=== PATIENT | female | born 2000 | race Caucasian/White ===

== ENCOUNTER 2019-05-10 11:58 | Emergency (ER) | payer SELFPAY ==
[2019-05-10 12:00] VITALS: BP 126/81; PULSE 93; RESP 16; TEMP 36.6; O2SAT 99; BMI 20.5
--- NOTE | 2019-05-10 12:47 | ED.VIS.GEN ---
History of Present Illness Chief Complaint: Edema Informant: Patient Onset: Days Context: Gradual Onset Timing: Continuous Current Severity: Severe Maximum Severity: Severe Narrative: Patient is a 19-year-old female with no significant past medical history presenting with pain and swelling around her right eye. Patient states a couple days ago she had what she thought was a pimple and popped it. She had a small amount of pus that came out. Since then she has had worsening pain, redness and swelling. She has had no more drainage from the site. Patient states is hard for her to open her eye now because of the swelling. When her eye is open she denies any blurry vision. She denies any pain with range of motion of her eyeball. She denies any fever, chills, nausea, vomiting or other systemic symptoms. She denies any history of IV drug use or MRSA. She denies any other complaints at this time. Patient states she is allergic to amoxicillin and penicillin but her reaction is vomiting. Past Medical History - Allergies and Home Meds Allergies/Adverse Reactions: Allergies amoxicillin Allergy (Verified 05/10/19 12:00) Hives Penicillins [PCN] Allergy (Verified 05/10/19 12:00) Hives Primary Care Physician: Care Physician,No Primary [Primary Care Provider] - Smoking Status: Current every day smoker Review of Systems All systems negative except as indicated Eyes: Reports: - - Swelling of eyelids, left Skin: Reports: Rash - Redness and warmth around left eye, Abscess - Left lateral eyebrow Physical Exam Vital Signs/Narrative: Vital Signs Temp Pulse Resp BP Pulse Ox 05/10/19 12:00 97.8 F 93 16 126/81 H 99 Inital Vital Signs reviewed: Yes General: Well nourished, Well developed, No Acute Distress Head: Normocephalic, Atraumatic Eyes: Perrl, EOMI, - - Sclera ecchymosis of lateral left eye, significant edema of upper and lower lids on the left with associated erythema ENT: Moist mucous membranes, No rhinorrhea Neck: Supple, Nontender Cardiovascular: Regular rate, Regular rhythm, No murmurs Respiratory: No distress, CTA bilaterally, Chest nontender Abdomen: Soft, Nontender, Nondistended, Normal bowel sounds Back: Nontender, Normal Inspection Extremities: Nontender, No edema Skin: No rash, - - Warmth, erythema and tenderness extending from lateral left eyebrow inferiorly, 1 cm x 1 cm area of fluctuance palpated just underneath the left lateral eyebrow Neurological: Alert, Oriented x3, Cranial nerves II-XII grossly intact, Normal Strength, Normal Sensation Psychological: Normal affect, Normal Mood Diagnostic/Tx/Re-eval - Medical Decision Making Patient has swelling and redness around her left eye. Physical exam is consistent with preseptal cellulitis. Range of motion is painless and intact I do not suspect a post septal cellulitis. Bedside ultrasound performed by myself which does show a discrete area of hypoechoic fluid consistent with an abscess just below the left lateral eyebrow. I&D is performed. See procedure note. Patient is started on Bactrim and Keflex. She is given first dose in the emergency room. Patient is given Motrin and then Percocet for pain control. She is given Zofran as she is had a reaction of nausea with penicillins in the past. Patient is counseled on signs and symptoms of progression of cellulitis/post septal cellulitis. She is referred to PCP for follow-up as well as ophthalmology. Patient is counseled on signs and symptoms requiring return to the emergency room. Patient verbalizes agreement and understand this plan. Patient discharged home in stable and improved condition. Procedures Procedure(s): Incision and drainage. Area anesthetized with 1 cc of 1% lidocaine without epinephrine. After adequate analgesia is achieved a #15 blade is used to make a 1 cm linear incision. Good amount of purulent drainage is expressed. Patient did have significant pain with this but tolerated procedure well. Forceps used to open up any potential loculations. Bleeding controlled with direct pressure. No significant blood loss. Extraocular eye muscles intact after procedure. No immediate complications noted. ED Disposition - Plan for ED Patient: Disposition: Home or Assisted Living Diagnosis: Abscess of face, Preseptal cellulitis of left eye Instructions: Nieves-Orbital Cellulitis, ABSCESS, Incision and Drainage Prescriptions: Smz/Tmp Ds [Bactrim Ds] 1 tab PO BID #14 tab Prescription Printed Cephalexin [Keflex] 500 mg PO Q6 #28 cap Prescription Printed Hydrocodone Bitart/Apap 5-325 [[place] 5MG-325MG] 1 tab PO Q8 PRN 3 Days #9 tab PRN Reason: Pain Score 6-10/10 Prescription Printed Ondansetron [Zofran Odt] 4 mg PO Q8H PRN PRN #10 tab PRN Reason: Nausea Prescription Printed Referrals: Care Physician,No Primary [Primary Care Provider] - Melanie Gil DO [NON-STAFF] - Lee Miller MD [STAFF PHYSICIAN] - Additional Instructions: Apply warm compresses to the affected area 4-6 times a day. Return if you have worsening symptoms or you do not notice any significant improvement after 48 hours of antibiotics.
[2019-05-10] MEDS: Ibuprofen 600 MG Tablet PO (12:53)
[2019-05-10] MEDS: Smz/Tmp Ds Tablet 1 TABLET PO (12:53)
[2019-05-10] MEDS: Ondansetron ODT 4 MG Tablet PO (12:53)
[2019-05-10] MEDS: Cephalexin 500 MG Capsule PO (12:55)
[2019-05-10] MEDS: HYDROcodone Bitartrate/Apap 5/325 Tablet PO (14:25)
== END 2019-05-10 14:32 | disposition home or self-care (01) ==
PROVIDERS: Emergency Provider Emergency Medicine
DX: L02.01 Cutaneous abscess of face (principal); L03.213 Periorbital cellulitis; F17.200 Nicotine dependence, unspecified, uncomplicated
CPT/HCPCS: 10060; 99283

== ENCOUNTER → 2020-07-15 15:12 | Outpatient (CLI) | payer MEDICAID, SELFPAY ==
[2020-07-15 17:17] LABS: Absolute Lymphocyte Count 0.81 X10^3/uL (0.83-4.51); Absolute Neutrophil Count 7.9 X10^3/uL (2.0-7.7); Basophil# 0.03 X10^3/uL; Basophil% 0.3 % (0-1); Eosinophil# 0.02 X10^3/uL; Eosinophils% 0.2 % (0-5); Hemoglobin 13.3 g/dL (12.0-15.0); Lymphocyte # 0.81 X10^3/ul (4.0); Lymphocyte % 9.1 % (19-41); Mean Corp Hgb Conc 31.7 g/dL (32-36); Mean Corpuscular Hgb 28.5 pg (27.0-32.0); Mean Corpuscular Volume 89.9 fL (81-99); Mean Platelet Vol. 9.1 fl (6.2-12.0); Monocyte# 0.12 X10^3/uL; Monocyte% 1.3 % (0-10); NRBC Flagged by Analyzer 0 % (0-5); Neutrophil # 7.92 X10^3/uL (2.7-7.7); Neutrophil % 88.8 % (47-70); Platelet Count 280 K/mm3 (150-450); RBC Distribution Width SD 42.3 fl (35.1-43.9); Red Blood Count 4.67 M/mm3 (4.2-5.4); White Blood Count 8.9 K/mm3 (4.4-11.0)
[2020-07-15 17:24] LABS: ALB/GLOB Ratio 0.9 RATIO (0.9-2.4); AST(SGOT) 7 U/L (15-37); Alanine Aminotransfer ALT/SGPT 21 U/L (13-56); Albumin, Serum 3.8 g/dL (3.2-5.0); Alkaline Phosphatase 76 U/L (45-117); Anion Gap 5 (5-15); BUN 9 mg/dL (7-18); BUN/Creat Ratio 15.6 RATIO (10-20); Calcium,Total 9.2 mg/dL (8.5-10.1); Chloride 108 mmol/L (98-107); Creatinine, Serum 0.58 mg/dL (0.55-1.02); EST Glomerular Filtration Rate 140 mL/min (>60); Est Glom Filt Rate - Afr Amer 169 mL/min (>60); Globulin 4.3 g/dL (2.2-4.2); Glucose 91 mg/dL (74-106); Potassium 3.6 mmol/L (3.5-5.1); Protein, Total 8.1 g/dL (6.4-8.2); Sodium Level 138 mmol/L (136-145)
[2020-07-16 08:58] LABS: HIV - WCH Non-Reactive (Nonreactive); Hepatitis B Surface Antigen Non-Reactive (Nonreactive); Rubella IgG Reactive (Nonreactive)
[2020-07-16 09:01] LABS: Hepatitis C Antibody REACTIVE (Nonreactive)
[2020-07-17 20:07] LABS: HCV Quant. RNA PCR HCV Not Detected IU/mL (.)
[2020-07-19 20:07] LABS: Chlamydia By Nucleic Acid AMP Negative (Negative)
[2020-07-19 20:49] LABS: Gonococcus By Nucleic Acid AMP Negative (Negative)
[2020-07-20 15:22] LABS: HPV Reflexed? NOT INDICATED
[2020-07-22 01:26] LABS: Prenatal RPR NONREACTIVE (NONREACTIVE)
== END ==
PROVIDERS: Visit Provider Obstetrics & Gynecology
DX: Z12.4 Encounter for screening for malignant neoplasm of cervix (principal); Z11.3 Encounter for screening for infections with a predominantly sexual mode of transmission
CPT/HCPCS: 36415; 80053; 80307; 81002; 85025; 86703; 86762; 86803; 87086; 87340; 87491; 87522; 87591; 88175; G0145

== ENCOUNTER → 2020-11-11 | Outpatient (CLI) | payer MEDICAID, SELFPAY ==
[2020-11-11 14:01] LABS: Amphetamine Urine VISTA POSITIVE (<1000 ng/mL); Barbiturate Urine VISTA NEGATIVE (< 200 ng/mL); Benzodiazepine Urine VISTA NEGATIVE (< 200 ng/mL); Cocaine Urine VISTA NEGATIVE (< 300 ng/mL); Ecstacy Urine VISTA POSITIVE (< 500 ng/mL); Methadone Urine VISTA NEGATIVE (< 300 ng/mL); PCP Urine VISTA NEGATIVE (< 25 ng/mL); THC Urine VISTA POSITIVE (< 50 ng/mL); Vista UDS pH Range 6
== END | disposition home or self-care (01) ==
LOC: LABSPEC 13:31
PROVIDERS: Visit Provider Obstetrics & Gynecology
DX: O99.322 Drug use complicating pregnancy, second trimester (principal); F19.10 Other psychoactive substance abuse, uncomplicated; Z3A.00 Weeks of gestation of pregnancy not specified
CPT/HCPCS: 80307

== ENCOUNTER 2021-03-09 23:08 | Inpatient (IN) | payer MEDICAID, SELFPAY ==
[2021-03-09 23:16] VITALS: BP 135/83; PULSE 82
[2021-03-09 23:19] VITALS: BMI 22.2
[2021-03-09 23:20] VITALS: PULSE 86; O2SAT 95
[2021-03-09] MEDS: Lactated Ringers 500 ML 999 ML IV (23:20)
[2021-03-09 23:22] VITALS: PULSE 93; O2SAT 93
--- NOTE | 2021-03-09 23:40 | PLAC_PTH ---
PATIENT: IRAM MEDINA LOC: [facility] U#:[id number] AGE/SX: ROOM: WP014 RE03/09/[address]: Dr. Matt Pendleton MD : 2000 BED: 1 DIS: 03/11/2021 SPEC #: [id number] RECD: 03/10/21 14:08 STATUS: ORALIA REMary #: [id number] AYLA: 03/09/21 23:[address]: Matt Pendleton DEPT: SURGICAL PATHOLOGY RECD BY: Kamran Fisher ENTERED: 03/10/21 10:04 SP TYPE: PLACENTA OTHR DR: No Primary Care Phys Tissues: Placenta, NOS Procedures: Surgery Specimen Level V HEADER OPERATION: Vaginal delivery PRE-OP DIAGNOSIS: Bloody amniotic fluid likely aruptio; drug use TISSUE SUBMITTED: Placenta MICROSCOPIC DIAGNOSIS Medel placenta (462 gm): Umbilical cord ? Trivascular with no inflammation Placental membranes ? No pathologic change. Placental disc ? Tenny-Brian change, intra villous and intervillous congestion. AM: am 03/15/21 MICROSCOPIC DESCRIPTION Slides are reviewed. GROSS DESCRIPTION SPECIMEN: PLACENTA / CLINICAL INFORMATION: A. Weight: 2.825 kg B. Gestational Age: 40 weeks C. Sex: Female PLACENTAL WEIGHT (POST FIXATION): 462 gm PLACENTAL DIMENSIONS: 16 x 14 x 3 cm PLACENTAL SHAPE: Usual ovoid PLACENTAL WEIGHT FOR GESTATIONAL AGE: Within 10-99th percentile MEMBRANES - Present A. Insertion: Marginal B. Site of rupture from edge: At cm from edge of placental disc C. Color of membrane: Baird-das D. Abnormalities: None UMBILICAL CORD - Present A. Color: Baird-das B. Insertion: Eccentric C. Length: 38 cm D. Diameter: 1.2 cm E. Number of vessels: Three F. Abnormalities: None PLACENTAL DISC - Present A. Color of surface: Baird-das B. surface abnormalities: None C. Maternal cotyledons: Intact with minimal tears D. Attached retro placental clot: No clot E. Cut surface: Dark red and spongy F. Lesions: None G. Separate clot: Absent SECTIONS SUBMITTED: 1. Umbilical cord ( end notched) 2. Umbilical cord, placental end 3. Membrane roll 4. Placental disc, and maternal surfaces 5. Placental disc, and maternal surfaces 6. Placental disc, and maternal surfaces AM:adarsh 03/11/2021 TC: CPT: 31416
[2021-03-09 23:45] LABS: Absolute Lymphocyte Count 2.01 X10^3/uL (0.83-4.51); Absolute Neutrophil Count 11.1 X10^3/uL (2.0-7.7); Basophil# 0.03 X10^3/uL; Basophil% 0.2 % (0-1); Eosinophil# 0.03 X10^3/uL; Eosinophils% 0.2 % (0-5); Hematocrit 38.7 % (37-47); Hemoglobin 12.5 g/dL (12.0-15.0); Lymphocyte # 2.01 X10^3/ul (0.83-4.51); Lymphocyte % 13.9 % (19-41); Mean Corp Hgb Conc 32.3 g/dL (32-36); Mean Corpuscular Hgb 27.9 pg (27.0-32.0); Mean Corpuscular Volume 86.4 fL (81-99); Mean Platelet Vol. 9.5 fl (6.2-12.0); Monocyte# 1.12 X10^3/uL; Monocyte% 7.8 % (0-10); NRBC Flagged by Analyzer 0 % (0-5); Neutrophil # 11.14 X10^3/uL (2.7-7.7); Neutrophil % 77.3 % (47-70); Platelet Count 365 K/mm3 (150-450); RBC Distribution Width CV 13.8 % (11.6-14.6); RBC Distribution Width SD 43.4 fl (35.1-43.9); Red Blood Count 4.48 M/mm3 (4.2-5.4); White Blood Count 14.4 K/mm3 (4.4-11.0)
[2021-03-09] MEDS: Oxytocin 30 units/NS 500 ml 30 UNITS/500 ML IV.SOLN 334 UNITS IV (23:47)
[2021-03-10] VITALS (20 sets, daily range): BP systolic 120–162; BP diastolic 64–87; PULSE 72–99; RESP 16–18; TEMP 36.4–36.7; O2SAT 96
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
--- NOTE | 2021-03-10 00:27 | EX.PCM.OBRPT ---
Vaginal Delivery Maternal Presentation Maternal Presentation: Active Labor Maternal Presentation: Presents at 40 weeks and 4 days gestation with heavy vaginal bleeding in advanced labor. Operative Information Date of Procedure: 03/09/21 Pre-Operative Diagnosis: IUP Post-Operative Diagnosis: IUP, Abruption Type of Anesthesia: Local with 1% Lidocaine Estimated Blood Loss: 750 cc Fluids Replaced: Crystalloid Findings Description of Procedure: Spontaneous precipitous vaginal delivery of a viable female infant with Apgars of 8/9 from an occiput anterior presentation with bloody amniotic fluid and three-vessel placenta. Placenta appeared to have approximately a 25% abruption. Second-degree midline episiotomy with no lacerations repaired with 3-0 Vicryl suture under local. Adherent placenta removed with ring forceps and a single pass of the banjo curette. Sponges okay. Nursery and respiratory personnel present for delivery. Delivery physician: Matt Pendleton MD. Presentation: Vertex Amniotic Membrane Rupture Type: Spontaneous Amniotic Fluid Description: Bloody Placental Delivery Description: Spontaneous and Curettage Placenta Disposition: Sent to Pathology Cord Vessel Description: 3 Vessels Cord Entanglement: None Cord Gases: ABG and VBG Infant A Gender: Female (1 minute): 8 (5 minute): 9 Post Vaginal Delivery Medications Given After Delivery: IV Pitocin Episiotomy Description: Midline and 2nd degree Laceration: None Complication Complications: None
--- NOTE | 2021-03-10 00:32 | PCM.DC ---
Discharge Instructions Diet Discharge Diet: No restrictions Activity Discharge Activity: May Drive (In 1 to 2 days if not taking narcotic pain medication), May Shower and May Take a Tub Bath May resume sexual activity in: 4-6 weeks Additional Activity Instructions:: Nothing in the vagina for 4-6 weeks. You may return to work/school in 6 weeks. Dressing / Incision Call your doctor if you observe: Fever of 101 or Higher, Inability to urinate, Inability to have a bowel movement and Using more than 1 pad per hour Follow Up Care When: Call [phone] to make an appointment with your doctor in 6 weeks. Test Results: Test results from this visit will be discussed in further detail at your follow-up appointment, if applicable. Discharge Plan Admission Admit Date/Time: 03/09/21 23:08 Primary Reason for Your Visit: Vaginal Delivery Attending Provider: Matt Pendleton Primary Care Provider: Care Physician,Sara Primary Discharge Orders/Prescriptions Referrals / Follow Up: Care Physician,No Primary [Primary Care Provider] - Disposition Disposition (needs filled in before D/C Order can be placed): Home, Self Care
[2021-03-10 02:14] LABS: Pathology Specimen OB SEE PATHOLOGY REPORT
[2021-03-10 02:16] LABS: Amphetamine Urine VISTA NEGATIVE (<1000 ng/mL); Barbiturate Urine VISTA NEGATIVE (< 200 ng/mL); Benzodiazepine Urine VISTA NEGATIVE (< 200 ng/mL); Cocaine Urine VISTA NEGATIVE (< 300 ng/mL); Ecstacy Urine VISTA POSITIVE (< 500 ng/mL); Methadone Urine VISTA NEGATIVE (< 300 ng/mL); PCP Urine VISTA NEGATIVE (< 25 ng/mL); THC Urine VISTA NEGATIVE (< 50 ng/mL); Vista UDS pH Range 5
[2021-03-10] MEDS: Ibuprofen 600 MG Tablet PO ×2 (02:26→09:30)
[2021-03-10 03:28] LABS: HIV - WCH Non-Reactive (Nonreactive); Hepatitis B Surface Antigen Non-Reactive (Nonreactive)
[2021-03-10 04:35] LABS: Hepatitis C Antibody Preliminary Reactive (Nonreactive)
[2021-03-10 07:43] LABS: Hematocrit 31.8 % (37-47); Hemoglobin 10.2 g/dL (12.0-15.0); Mean Corp Hgb Conc 32.1 g/dL (32-36); Mean Corpuscular Hgb 28.1 pg (27.0-32.0); Mean Corpuscular Volume 87.6 fL (81-99); Platelet Count 334 K/mm3 (150-450); RBC Distribution Width CV 13.9 % (11.6-14.6); RBC Distribution Width SD 43.9 fl (35.1-43.9); Red Blood Count 3.63 M/mm3 (4.2-5.4); White Blood Count 14.4 K/mm3 (4.4-11.0)
--- NOTE | 2021-03-10 08:56 | PN.OBGYN_ITS ---
Subjective Subjective No overnight complaints. Pain well controlled. Objective Data Objective Data Vital Signs: Vital Signs Temp Pulse Resp BP Pulse Ox 97.5 F L 77 16 139/81 H 96 03/10/21 08:52 03/10/21 08:52 03/10/21 04:00 03/10/21 08:52 03/10/21 04:00 Oxygen Delivery Method Room Air Weight: 155 lb Body Mass Index (BMI) 22.2 Intake & Output: Intake and Output for Last 24 Hours 03/08/21 03/09/21 03/10/21 23:59 23:59 23:59 Intake Total 449 / 449 500 / 500 Balance 449 / 449 500 / 500 Lab / Micro Data Result Diagrams: 03/10/21 07:35 Labs: Laboratory Results - last 24 hr 03/09/21 23:20: WBC 14.4 H, RBC 4.48, Hgb 12.5, Hct 38.7, MCV 86.4, MCH 27.9, MCHC 32.3, RDW Std Deviation 43.4, RDW Coeff of Ron 13.8, Plt Count 365, MPV 9.5, Immature Gran % (Auto) 0.600, Neut % (Auto) 77.3 H, Lymph % (Auto) 13.9 L, [place] % (Auto) 7.8, Eos % (Auto) 0.2, Baso % (Auto) 0.2, Absolute Neuts (auto) 11.1 H, Absolute Lymphs (auto) 2.01, Nucleated RBC % 0 03/09/21 23:20: Blood Type A POSITIVE, Antibody Screen NEGATIVE 03/09/21 23:20: Hep Bs Antigen Non-Reactive, Hepatitis C Antibody Preliminary Reactive, HIV 1&2 Antibody Non-Reactive 03/10/21 01:00: Urine Opiates Screen POSITIVE H, Urine Methadone Screen NEGATIVE, Ur Barbiturates Screen NEGATIVE, Ur Phencyclidine Scrn NEGATIVE, Ur Amphetamines Screen NEGATIVE, U Methamphetamin-MDMA POSITIVE H, U Benzodiazepine s Scrn NEGATIVE, Urine Cocaine Screen NEGATIVE, U Cannabinoids Screen NEGATIVE, Ur Drug Screen Comment 03/10/21 07:35: WBC 14.4 H, RBC 3.63 L, Hgb 10.2 L, Hct 31.8 L, MCV 87.6, MCH 2 8.1, MCHC 32.1, RDW Std Deviation 43.9, RDW Coeff of Ron 13.9, Plt Count 334, MPV 9.0 Micro: Microbiology 03/10/21 01:00 Nasal Secretion SARS-CoV-2 Antigen (Rapid) - Final Physical Exam Const alert, oriented x3, no apparent distress, average body habitus, healthy ap pearing and well nourished Exam Limitations: no limitations HEENT normocephalic and moist oral mucous membranes Head and Scalp: atraumatic Face and Sinus: normal facial exam Neck full ROM Resp normal respiratory effort, no retractions and no use of accessory muscles Extremity normal to inspection, full ROM and no clubbing, cyanosis or edema Skin no rashes or lesions noted Psych mental status grossly normal, affect normal, speech normal and activity/motor behavior normal Assessment & Plan (1) Vaginal delivery: PLAN: day 0. Pain well controlled. Likely discharge home tomorrow
--- NOTE | 2021-03-10 08:56 | PN.OBGYN_ITS ---
Subjective Subjective Patient without complaints. Minimal vaginal bleeding. Plans to stay at least 1 more day. Objective Data Objective Data Vital Signs: Vital Signs Temp Pulse Resp BP Pulse Ox 97.5 F L 77 16 139/81 H 96 03/10/21 08:52 03/10/21 08:52 03/10/21 04:00 03/10/21 08:52 03/10/21 04:00 Oxygen Delivery Method Room Air Weight: 155 lb Body Mass Index (BMI) 22.2 Intake & Output: Intake and Output for Last 24 Hours 03/08/21 03/09/21 03/10/21 23:59 23:59 23:59 Intake Total 449 / 449 500 / 500 Balance 449 / 449 500 / 500 Lab / Micro Data Result Diagrams: 03/10/21 07:35 Labs: Laboratory Results - last 24 hr 03/09/21 23:20: WBC 14.4 H, RBC 4.48, Hgb 12.5, Hct 38.7, MCV 86.4, MCH 27.9, MCHC 32.3, RDW Std Deviation 43.4, RDW Coeff of Ron 13.8, Plt Count 365, MPV 9.5, Immature Gran % (Auto) 0.600, Neut % (Auto) 77.3 H, Lymph % (Auto) 13.9 L, [place] % (Auto) 7.8, Eos % (Auto) 0.2, Baso % (Auto) 0.2, Absolute Neuts (auto) 11.1 H, Absolute Lymphs (auto) 2.01, Nucleated RBC % 0 03/09/21 23:20: Blood Type A POSITIVE, Antibody Screen NEGATIVE 03/09/21 23:20: Hep Bs Antigen Non-Reactive, Hepatitis C Antibody Preliminary Reactive, HIV 1&2 Antibody Non-Reactive 03/10/21 01:00: Urine Opiates Screen POSITIVE H, Urine Methadone Screen NEGATIVE, Ur Barbiturates Screen NEGATIVE, Ur Phencyclidine Scrn NEGATIVE, Ur Amphetamines Screen NEGATIVE, U Methamphetamin-MDMA POSITIVE H, U Benzodiazepines Scrn NEGATIVE, Urine Cocaine Screen NEGATIVE, U Cannabinoids Screen NEGATIVE, Ur Drug Screen Comment 03/10/21 07:35: WBC 14.4 H, RBC 3.63 L, Hgb 10.2 L, Hct 31.8 L, MCV 87.6, MCH 28.1, MCHC 32.1, RDW Std Deviation 43.9, RDW Coeff of Ron 13.9, Plt Count 334, MPV 9.0 Micro: Microbiology 03/10/21 01:00 Nasal Secretion SARS-CoV-2 Antigen (Rapid) - Final Assessment & Plan (1) Vaginal delivery: PLAN: Doing well post day #1 status post routine spontaneous vaginal delivery. Continuing present care.
[2021-03-10 11:14] LABS: Rubella IgG Reactive (Nonreactive); Syphilis Antibodies Non-reactive
--- NOTE | 2021-03-10 14:30 | CASEMGMT ---
Social Work Assessment Labor and Delivery Unit Patient Address: [address] [place] [address]. Phone number: [phone] Date of Referral: 03/10/2021 Time of Referral: 34 Referred By: Dr. Matt Pendleton Date of Intervention: 03/10/2021 Time of Intervention: 1430 Reason for Referral: Substance abuse History obtained from: Medical records and mother of baby (MOB) Carmen Goodwin Household composition: MOB reports to live with the father of baby (FOB) Domingo Beltrán, and the FOB's a parental home. Intention to take baby girl to this home. Home situation is reported as safe and adequate. Patient's parent/guardian status: MOB is a 21-year-old single female, involved with the FOB for the last 3 to 4 years. MOB denies any history of abuse, control, or intimidation in this relationship. [place] baby is the first child for parents together. [place] baby girl is to be named Shelton Beltrán, born [birth year]/09/2022. Medical History: PATRICK is 2, para 0 now 1 after delivery Shelton. care started at 10 weeks on 08/13/2020. In the record noted additional visits on 08/17/2020 and then on 11/11/2020. care scant. MOB reports history of 8-week miscarriage in July 2018. MOB reports belief the miscarriage was due to the MOB trying to detox from heroin at that time. [place] baby girl Shleton delivered at 40.4 weeks gestation. weight 6 pounds 4 ounces, small for gestational age as per the medical record. Apgars 8 and 9 at 1 and 5 minutes of life respectively. Maternal history of hepatitis C. Concern for possible placental abruption time of delivery. Educational Status: MOB reports she dropped out of school during her senior year. Denies any concerns with reading, writing, or learning comprehension. Financial Status: Reports was working at [employer] in [place], [place] the beginning of the , but not recently working. FOB is reportedly doing some dry walling. Otherwise family supported by the FOB's parents. Supplies: MOB reports to have necessary supplies to get started including a bassinet, car seat, clothing, diapers, wipes, and bottles. Reports ability to purchase formula. Plan is to formula feed the baby. Childcare/Caregiver(s): MOB intends to be the primary caregiver along with help from the FOB. Transportation: MOB relies on [employer] for transportation and they have achieved to drive. Programs/Agencies Involved: PATRICK has Medicaid through job and family services. No other agency involvement at this time. Reports interest in [facility]. Behavioral Health Issues: Mental Health History: MOB reports history of depression. Denies history of suicidal ideation or attempts. Reports as a teenager saw a therapist by the name of Nikky at [facility]. No reported history of thoughts of harm to others. Substance Use History: MOB reports a long history of substance abuse starting at the age of 13. MOB endorses to this film writer use of heroin, methamphetamine, and marijuana during this . Reports methamphetamine use was at the beginning of , really before MOB knew she was . Chart indicates usage was 2 times. Upon this film writer questioning about MOB having amphetamines showing positive in urine drug screen, MOB then it acknowledged that methamphetamine could have been cut into the heroin unknown to the mother at the time of ingestion. MOB with a history of marijuana usage, which MOB reports last use was a few months ago which helped MOB with her nausea. MOB endorsed to this film writer 1 time daily use of injected heroin during this . Last use on 03/09/2021. MOB reports reasoning for continued use of heroin during , to help stave off any loss of such as when MOB miscarried in 2019. MOB reported believe that one-time use would help prevent miscarriage. MOB endorsed to this film writer history of sharing needles with the FOB. Denies any prescription pill abuse or cocaine abuse. Denies any alcohol use during . Does smoke tobacco greater than 10 cigarettes a day. Family History: MOB reported her biological mother has a long history of substance use. MOB endorsed that the FOB also uses heroin. Drug Screens: MOB with a positive drug screen on 11/11/2020 for amphetamines, methamphetamine/MDMA, and marijuana. MOB with positive drug screen at time of delivery on 03/10/2021 for opiates and methamphetamine/MDMA. 's urine drug screen is positive for opiates. Peroneum drug test is pending. WOODROW: Infant will be scored for withdrawal via the Eat Sleep Console method. Family/Social Stressors: Maternal substance use during . MOB endorses that FOB also uses heroin. Reports that FOB is parents are aware of history of substance use, but MOB reports belief that FOMally's parents have been unaware of continued use during . Scant care, for which MOB reports was due to appointments being early in the morning and MOB not being able to wake up, or during the time when the FOB was working. Support Systems: MOB reports support from the FOB, FOB's mother, and the FOB is older Sister Mónica Goodwin. Depression/Shaken Baby/Safe Sleeping: Information being provided. ASSESSMENT: Met with the MOB in room. Introduced to self and social work role. MOB cooperative and pleasant, willing to talk to this film writer. MOB held infant for most of the assessment, and was appropriate and how handled the baby. MOB did try setting the baby down in the crib, which lasted for approximately 5 to 10 minutes before the baby started crying again. MOB reported that this was the longest that the baby had been calm and able to laying the crib. MOB endorses to have stable housing and necessary supplies for the baby. Discussed mood and anxiety disorders. MOB endorsed worry that she may develop depression. Let MOB know we will provide some resources. Discussed with the MOB concerns about substance use in . Educated MOB to the need to call children services related to substance exposure in utero, even prior to questioning the mother regarding this topic. MOB continued to be cooperative with assessment questions, even after knowing children services must be called. MOB nodded head in understanding that children services had to be called. MOB had no other real response about the need to involve children services. This film writer explored with MOB, the MOB willingness for change and potential need for detox. MOB reports she would be willing to enter detox program now and interested in the program provided at [facility]. MOB voiced that would not agree however to long-term medication assisted treatment, but would agree for this while in a detox program. MOB reported believe that using it medication assisted treatment is just substituting 1 drop for another. This film writer educated MOB to some of the rules surrounding this program. After education to some of the rules, the MOB decided she would prefer to try detoxing on her own, but asked if things got too bad could MOB entered to detox at a later time. This film writer educated the MOB entering detox at a later time is a possibility, but that cannot call for admission until MOB is ready to do so. Note, this film writer noted in the care record that detox programs were discussed with the MOB in both August and November, and that MOB reportedly did not go to detox due to having car troubles, and then was to follow-up with a local agency. This film writer addressed with the MOB as to whether the FOB can get on board with detox and sobriety himself. MOB reported believe that FOB will go alongside ceasing use. Encouraged MOB to let staff know if MOB would like to work on detox program. This film writer strongly reinforced with the MOB, that neither the MOB or the FOB can be using substances while in the hospital, or while caring for the baby. MOB expressed understanding and agreement. Let MOB know that the will be evaluated and monitored for withdrawal symptoms for a minimum of 5 days. Safe plan of Care for related to substance use: MOB plans to abstain from illicit drug usage. Reports intention to seek some level of treatment in the near future. Expressed would be open to going to a local agency for assessment should MOB not go through the medical detox program. Explored with MOB plan is should be and will be used again in the future. MOB reports that she would ensure the baby was cared for by a sober person, and would not use around the baby. PLAN: Social work will continue to follow and assist this family during the hospital stay. Will be calling children services of [facility]. Will be following up with the MOB again for provision of resources at home going. -IDALIA Bauman, ANTONIA *This note was generated with Laura Sapiensation software. It may contain incorrect words, spelling, and punctuation that were not noted in review of the chart prior to signing*
[2021-03-10] MEDS: Acetaminophen 500 MG Tablet 1000 MG PO (14:47)
[2021-03-10] MEDS: Senna/Docusate Sodium 1 Tablet PO (14:48)
--- NOTE | 2021-03-10 15:30 | CASEMGMT ---
Social Work Labor and Delivery Unit Called [facility] children services and spoke to Nichelle Lemos in the intake department. [phone], extension [phone]. Referral for substance exposed in utero, reporting positive maternal drug screens during and at time of delivery, including the baby's urine drug screen positive for opiates. Reported scant care, reports of the father of baby also having substance use history, as well as other risk factors. Brief maternal and history is provided. Referral will be screened in for investigation. This travel writer asked Nichelle for the assigned worker to touch base with this travel writer once known. Plan: Social work will continue to follow. Baby will remain in the hospital for minimum of 5 days for monitoring of withdrawal. Children services will be following. Plan to collaborate with children services for safe discharge plan of the . -MILDRED Bauman, MACHINE GROUP LEADER *This note was generated with Azuro dictation software. It may contain incorrect words, spelling, and punctuation that were not noted in review of the chart prior to signing*
[2021-03-11] VITALS (8 sets, daily range): BP systolic 127–147; BP diastolic 75–86; PULSE 71–90; RESP 16–18; TEMP 36.3–37.3; O2SAT 97–98
[2021-03-11] MEDS: Ibuprofen 600 MG Tablet PO ×2 (00:08→14:50)
[2021-03-11] MEDS: Acetaminophen 500 MG Tablet 1000 MG PO ×2 (06:05→17:37)
--- NOTE | 2021-03-11 08:08 | NURSING ---
Pt. Lungs are clear to auscultation with cough.
--- NOTE | 2021-03-11 11:47 | PCM.PN.OB ---
Subjective Subjective Patient without complaints. Baby is in special care nursery for detox this morning. Patient is considering detox or self on the MedSurg unit. No issues from delivery with minimal vaginal bleeding noted. Objective Data Objective Data Vital Signs: Vital Signs Temp Pulse Resp BP Pulse Ox 98.1 F 72 18 147/83 H 96 03/11/21 07:51 03/11/21 07:51 03/11/21 07:51 03/11/21 07:51 03/10/21 04:00 Oxygen Delivery Method Room Air Weight: 155 lb Body Mass Index (BMI) 22.2 Intake & Output: Intake and Output for Last 24 Hours 03/09/21 03/10/21 03/11/21 23:59 23:59 23:59 Intake Total 449 / 449 500 / 500 Balance 449 / 449 500 / 500 Lab / Micro Data Result Diagrams: 03/10/21 07:35 Micro: Microbiology 03/10/21 01:00 Nasal Secretion SARS-CoV-2 Antigen (Rapid) - Final Assessment & Plan (1) Vaginal delivery: PLAN: Doing well day #2 status post routine spontaneous vaginal delivery. Will discharge to hotel status or home depending on whether patient desires to stay for detoxification herself. Appreciate social service consult. Return for routine visit in about 6 weeks.
--- NOTE | 2021-03-11 18:54 | CASEMGMT ---
Social Work Labor and Delivery Unit This tech writer received call from Saeid Siegel at [facility], , extension [phone]. Saeid is the assigned worker for referral this tech writer made on 03-29. Reviewed chart for updated information on baby and mother of baby (MOB); spoke with audit clerk and nursing staff for update as well. Updated Saeid and clarified referral information. Saeid will be making contact via phone with the MOB, and working to determine a safe plan of care for the infant at time of discharge. Plan to explore whether there are any safe family members to help at discharge, versus other alternatives. This tech writer received update from nursing and medical staff that baby to be admitted into the [facility] special care nursery due to the Eat Sleep Console scores today. This tech writer is the assigned social science teacher to the [facility] nursery, for continuity of care care families who are admitted from [facility] labor and delivery unit. This tech writer will be following along while the baby is in the special care nursery. Updated Saeid at [facility] to change in status and the baby. Met with the MOB in her room. MOB crying and visibly upset regarding the infant being admitted to the special care nursery. MOB reported that she is feeling sore, but reported that likely not feeling as bad as the baby. This tech writer explored with the MOB whether the MOB may now consider entering a detox program, or if MOB feels this is needed. MOB voiced would be interested in going into the medical detox program at [facility], but wants to wait on the father of baby to come back to the hospital, so that MOB can update FOB to what is going on. Explored whether the FOB will be willing to enter detox as well. MOB reported the FOB may just want to go ahead and detox on his own at home, reporting that the FOB has been in shelter before and had to detox on own during that time. MOB reported that she has never been in shelter so has never had a detox on her own. Did let the MOB know, that if the FOB wants a medical detox program will have to go through the emergency room for medical clearance. MOB went on to share her experience of how she got started using heroin at the age of 13. Supportive listening and encouragement provided to the MOB this date. Updated MOB also, to the fact that [facility] is now involved, and provided Saeid's card for the MOB. This tech writer explored whether MOB feels there are any safe family members to help with the care of the baby. MOB reported belief that the FOB's parents would be appropriate to help. This tech writer spoke with medical surgical nursing manager Shu Armstrong Regarding potential need and desire by the MOB for admission into the the medical detox program. Shu agreed that if physician will accept can [facility]. Reviewed rules regarding visitation. While the MOB is in the medical detox program, the MOB would not be allowed to leave her room to visit the baby. MOB could receive updates from nursing staff on how the baby is doing. This tech writer checked back with MOB later in the day, when MOB was at the baby's bedside in the special care nursery. MOB reports that she was able to get some good rest, more than had the night before. MOB reported the FOB still has not come into the hospital and still wants to wait to speak to the FOB before trying to go into the detox program. Observed MOB to hold the baby appropriately, trying to feed the baby, and talking to the baby. MOB fussy and crying intermittently. Spoke with the charge nurse for the [facility], and MOB nurses for today. Provided with the patient care agreement/contract if MOB chooses to enter into the medical detox program. Educated nursing staff that we will need to contact the admitting hospitalist for admission. May need to involve the MEAT STOCKER and and do a physician to physician discussion. Note, did update Dr. Pendleton when Dr. Pendleton was making rounds with the MOV earlier today, the MOB considering entering detox at the hospital. Updated [facility] staff that the director of sports performance for the medical surgical unit where the MOB would go, has okayed a direct admission if a hospitalist will admit. Plan: Social work will continue to follow and assist as needs arise. MOB will potentially go into detox program but awaiting discussion with the FOB. Children services is involved and will be following up with social work on 03/15/2021. MOB did agree to help me grow referral and this will be done closer to the infant's discharge. -MILDRED Bauman, PLANT MAINTENANCE ENGINEER *This note was generated with Neronote dictation software. It may contain incorrect words, spelling, and punctuation that were not noted in review of the chart prior to signing*
== END 2021-03-11 19:50 | disposition home or self-care (01) | DRG 560 ==
PROVIDERS: Admitting Provider Obstetrics & Gynecology; Visit Provider Obstetrics & Gynecology
DX: O45.93 Premature separation of placenta, unspecified, third trimester (principal); O99.324 Drug use complicating childbirth; F11.90 Opioid use, unspecified, uncomplicated; O98.42 Viral hepatitis complicating childbirth; B19.20 Unspecified viral hepatitis C without hepatic coma; Z37.0 Single live birth; Z3A.40 40 weeks gestation of pregnancy; O99.334 Smoking (tobacco) complicating childbirth; F17.200 Nicotine dependence, unspecified, uncomplicated; O62.3 Precipitate labor
CPT/HCPCS: 59025; 59050; 80307; 85025; 85027; 86703; 86762; 86780; 86803; 86850; 86900; 86901; 87340; 87426; 88307; 99218; J7120; G0378

== ENCOUNTER 2023-01-02 18:25 | Emergency (ER) | payer MEDICAID, SELFPAY ==
[2023-01-02 18:26] VITALS: BP 118/70; PULSE 76; RESP 17; TEMP 36.6; O2SAT 99; BMI 20.5
--- NOTE | 2023-01-02 19:04 | EX.ED.SAOD ---
HPI History of Present Illness Chief Complaint: Substance Abuse Informant: patient Narrative Narrative: Patient presents here for detox from heroin. Patient uses about a gram of heroin a day. Using half a gram in the morning and another half gram or so in the evening. Last use was about 12:00 today. She does not have any withdrawal symptoms now. But she does get nausea vomiting anxiety cramping if she withdraws. She does inject it. She has never had an injection site infection or abscess and never needed drainage for this. No history of heart valve abnormalities. She denies problems with other compounds. She denies any physical complaints currently. Patient does think that she is . Her last menstrual cycle started the end of October and ended the first few days of November. She took a home test about a week and a half ago that was positive. But she has no pelvic pain discharge or bleeding. She has not seen anyone yet. She has 1 prior with delivery. [facility] Medical History Depression Eye abnormality Trauma Vaginal delivery Home Medications NK 01/02/23 [History Last Taken Unknown] Allergy/AdvReac Type Severity Reaction Status Date / Time amoxicillin Allergy Hives Verified 05/10/19 12:00 Penicillins [PCN] Allergy Hives Verified 05/10/19 12:00 Surgical History H/O eye surgery H/O neck surgery Social History Smoking Status: Heavy Smoker (>10/day) ROS ROS ED ROS Narrative A complete review of systems was performed and is negative except as documented in the history of present illness. Some specific details below. Constitutional: No recent fevers or chills. No malaise. ENT: No difficulty swallowing. No GERD. No thrush. CV: No chest pain or palpitations. No history of valvular abnormalities Respiratory: No dyspnea. No hemoptysis. No difficulty taking breaths. No hemoptysis GI: She has no nausea vomiting now. She has had some nausea from what she feels like is this but had that with her last . She also will get nausea if she starts withdrawing. : No frequency dysuria or hematuria. Musculoskeletal: No recent trauma. No pains. Skin: No rash. Nondiaphoretic. No injection site inflammation. Neuro: No weakness or numbness. Endocrine: No polyuria or polydipsia. EXAM Physical Exam Narrative Exam Narrative: CONSTITUTIONAL: Patient is nontoxic in appearance. The patient looks comfortable. HEENT: No notable trauma. Mucous membranes moist. No thrush. EYES: No conjunctival injection. No pallor or jaundice. CARDIOVASCULAR: Regular rate. Regular rhythm. No notable murmur. No JVD. RESPIRATORY: No respiratory distress. Breathing is unlabored. No wheezes. No rhonchi. No rales. No pain with a deep breath. GASTROINTESTINAL: Not distended. Bowel sounds are normal. No tenderness. No guarding. No rebound. No palpable mass. No bruit. GENITOURINARY: No tenderness over the bladder. No CVA tenderness. MUSCULOSKELETAL: Patient does have injection sites mostly in both forearms and antecubital fossa's. It looks like most recent is in the right antecubital fossa. I do not see any sign of infections. NEUROLOGICAL: Patient is alert and appropriate. No focal deficit noted. SKIN: No noted rashes. No diaphoresis. Track hyatt as above. PSYCHIATRIC: Patient is calm. Mood is appropriate. Const Vital Signs: 01/02/23 18:26 Temperature 98 F Temperature Source Temporal Pulse Rate 76 Respiratory Rate 17 Blood Pressure 118/70 Blood Pressure Mean 86 Pulse Ox 99 Oxygen Delivery Method Room Air MDM MDM MDM Narrative Medical decision making narrative: Patient's toxicology screen was positive for opiates as well as amphetamines and cannabinoids. Alcohol level was just 5. Serum was positive. Urine showed no convincing evidence of UTI. Blood work was pending. Evidently patient was upset about difficulty drawing blood. She got up from the room and she left. She was not in the building her room or hallway when I went to try to talk to her. Lab Data Attestation: I reviewed the patient's lab results. Labs: Laboratory Results - last 24 hr 01/02/23 01/02/23 01/02/23 18:43 19:00 19:00 Serum , Qual POSITIVE H Urine Color Urine Clarity Urine pH Ur Specific [place] Urine Protein Urine Glucose (UA) Urine Ketones Urine Occult Blood Urine Nitrite Urine Bilirubin Urine Urobilinogen Ur Leukocyte Esterase Urine RBC Urine WBC Ur Squamous Epith Cells Amorphous Sediment Urine Bacteria Urine Mucus Urine Opiates Screen POSITIVE H Urine Methadone Screen NEGATIVE Ur Barbiturates Screen NEGATIVE Ur Phencyclidine Scrn NEGATIVE Ur Amphetamines Screen NEGATIVE MDMA (Ecstasy) Screen POSITIVE H U Benzodiazepines Scrn NEGATIVE Urine Cocaine Screen NEGATIVE U Cannabinoids Screen POSITIVE H Ur Drug Screen Comment Ethyl Alcohol 5.0 01/02/23 19:00 Serum , Qual Urine Color Yellow Urine Clarity Sl. Cloudy Urine pH 6.0 Ur Specific [place] 1.015 Urine Protein Negative Urine Glucose (UA) Normal Urine Ketones Negative Urine Occult Blood Negative Urine Nitrite Negative Urine Bilirubin Negative Urine Urobilinogen 1 H Ur Leukocyte Esterase 100 H Urine RBC 0-5 SEEN Urine WBC 5-10 SEEN Ur Squamous Epith Cells 0-5 SEEN Amorphous Sediment 1+ URATE Urine Bacteria 0 SEEN Urine Mucus 0 SEEN Urine Opiates Screen Urine Methadone Screen Ur Barbiturates Screen Ur Phencyclidine Scrn Ur Amphetamines Screen MDMA (Ecstasy) Screen U Benzodiazepines Scrn Urine Cocaine Screen U Cannabinoids Screen Ur Drug Screen Comment Ethyl Alcohol Discharge Plan Triage Chief Complaint: Substance Abuse ED Provider: Gavin Palmer Dx/Rx/DC Orders Clinical Impression: Desire for detoxification, Opiate abuse, continuous, , Eloped from emergency department Prescriptions: No Action NK Primary Care Provider: Care Physician,No Primary Referrals: Care Physician,No Primary [Primary Care Provider] - Disposition Disposition: Elopement
[2023-01-02 19:12] LABS: Bacteria 0 SEEN /hpf (None Seen); Mucous, Urine 0 SEEN /hpf (<or=2+)
[2023-01-02 19:15] LABS: Color, Urine Yellow (Yellow); Glucose, Dipstick Normal (Normal); Ketone-Dipstick Negative (Negative); Leukocyte Esterase-Dipstick 100 /ul (Negative); Nitrite-Dipstick Negative (Negative); Occult Blood-Urine Negative /ul (Negative); Protein-Dipstick Negative (Negative); Specific Gravity, Urine 1.015 (1.002-1.030); Urine Bilirubin Dipstick Negative (Negative); Urine Clarity Sl. Cloudy (Clear); Urine Urobilinogen 1 mg/dl (Normal)
[2023-01-02 19:27] LABS: Vista UDS pH Range 6
[2023-01-02 19:31] LABS: Amphetamine Urine VISTA NEGATIVE (<1000 ng/mL); Barbiturate Urine VISTA NEGATIVE (< 200 ng/mL); Benzodiazepine Urine VISTA NEGATIVE (< 200 ng/mL); Cocaine Urine VISTA NEGATIVE (< 300 ng/mL); Ecstacy Urine VISTA POSITIVE (< 500 ng/mL); Methadone Urine VISTA NEGATIVE (< 300 ng/mL); PCP Urine VISTA NEGATIVE (< 25 ng/mL); THC Urine VISTA POSITIVE (< 50 ng/mL)
[2023-01-02 19:33] LABS: Internal QC Validated? YES +Cl - CLEAR BKGD
[2023-01-02 19:37] LABS: Red Blood Cells-Urine 0-5 SEEN /hpf (0-5); Squamous Epithelial Cells - UA 0-5 SEEN /hpf (5-10); White Blood Cells 5-10 SEEN /hpf (0-5)
--- NOTE | 2023-01-02 19:37 | ED.RN ---
PT WANTS TO LEAVE, CALLING FOR A RIDE. PROVIDER AWARE.
[2023-01-02 19:38] LABS: Amorphous Sediment 1+ URATE
[2023-01-02 23:51] LABS: Pregnancy, Serum, hCG Quali. POSITIVE Negative
== END 2023-01-02 20:24 | disposition left against medical advice (07) ==
PROVIDERS: Emergency Provider Emergency Medicine; Visit Provider Emergency Medicine
DX: O99.324 Drug use complicating childbirth (principal); F11.10 Opioid abuse, uncomplicated; F15.10 Other stimulant abuse, uncomplicated; F17.200 Nicotine dependence, unspecified, uncomplicated; F12.10 Cannabis abuse, uncomplicated; O99.330 Smoking (tobacco) complicating pregnancy, unspecified trimester; Z3A.00 Weeks of gestation of pregnancy not specified; Z53.29 Procedure and treatment not carried out because of patient's decision for other reasons
CPT/HCPCS: 80307; 81001; 82077; 84703; 99282

== ENCOUNTER 2023-08-31 10:48 | Observation (INO) | payer MEDICAID, SELFPAY ==
[2023-08-31 10:49] VITALS: BP 143/95; PULSE 96; RESP 18; TEMP 36.3; O2SAT 97; BMI 24.0
[2023-08-31 12:34] LABS: Absolute Lymphocyte Count 2.82 X10^3/uL (0.83-4.51); Absolute Neutrophil Count 3.6 X10^3/uL (2.0-7.7); Basophil# 0.04 X10^3/uL; Basophil% 0.6 % (0-1); Eosinophil# 0.14 X10^3/uL; Hematocrit 40.6 % (37-47); Hemoglobin 12.6 g/dL (12.0-15.0); Lymphocyte # 2.82 X10^3/ul (0.83-4.51); Lymphocyte % 39.8 % (19-41); Mean Corpuscular Hgb 26.8 pg (27.0-32.0); Mean Corpuscular Volume 86.2 fL (81-99); Mean Platelet Vol. 10.8 fl (6.2-12.0); Monocyte# 0.47 X10^3/uL; Monocyte% 6.6 % (0-10); NRBC Flagged by Analyzer 0 % (0-5); Neutrophil # 3.58 X10^3/uL (2.7-7.7); Neutrophil % 50.4 % (47-70); RBC Distribution Width CV 14.5 % (11.6-14.6); RBC Distribution Width SD 44.4 fl (35.1-43.9); Red Blood Count 4.71 M/mm3 (4.2-5.4); White Blood Count 7.1 K/mm3 (4.4-11.0)
[2023-08-31 12:46] LABS: Amphetamine Urine VISTA NEGATIVE (<1000 ng/mL); Barbiturate Urine VISTA NEGATIVE (< 200 ng/mL); Benzodiazepine Urine VISTA NEGATIVE (< 200 ng/mL); Cocaine Urine VISTA NEGATIVE (< 300 ng/mL); Ecstacy Urine VISTA NEGATIVE (< 500 ng/mL); Methadone Urine VISTA NEGATIVE (< 300 ng/mL); PCP Urine VISTA NEGATIVE (< 25 ng/mL); THC Urine VISTA NEGATIVE (< 50 ng/mL); Vista UDS pH Range 6
[2023-08-31 12:46] LABS: Anion Gap 6 (5-15); BUN 9 mg/dL (7-18); BUN/Creat Ratio 12.9 RATIO (10-20); Calcium,Total 9.4 mg/dL (8.5-10.1); Chloride 107 mmol/L (98-107); EST Glomerular Filtration Rate 110 mL/min (>60); Est Glom Filt Rate - Afr Amer 133 mL/min (>60); Estimated Creatinine Clearance 129.51 ml/min; Glucose 91 mg/dL (74-106); Potassium 3.6 mmol/L (3.5-5.1); Sodium Level 140 mmol/L (136-145)
[2023-08-31 13:13] LABS: Platelet Estimate ADEQUATE (ADEQ)
[2023-08-31 13:19] LABS: Alcohol, Blood (Medical)-Serum < 3.0 mg/dL; Internal QC Validated? YES +Cl - CLEAR BKGD; Record Kit Lot#, Serum Preg. HCG0000718086
[2023-08-31 13:22] LABS: Pregnancy, Serum, hCG Quali. POSITIVE Negative
--- NOTE | 2023-08-31 14:50 | ED.RN ---
Pt informed RN of needing a breast pump due to engorgement. called to obtain pump. Pt also stated she passed a blood clot about the size of an avocado. PA and informed. No new orders.
--- NOTE | 2023-08-31 15:01 | EDS_ITS ---
HPI <MONICA Gee - Last Filed: 08/31/23 18:40> History of Present Illness Chief Complaint: Substance Abuse Narrative Narrative: Patient presenting today requesting to detox from heroin. She reports that she has been a daily heroin user for the past 10 years. She normally uses about 1/2 g daily, primarily injects. She has never detoxed in the past. She reports that she delivered a baby 3 days ago, the baby is still at [facility]. The patient was discharged from the hospital yesterday and last used heroin last night. She reports that last night she had an episode of chills, no recent fevers. She reports bilateral breast pain, she has not been pumping since being home. She denies any other substance use. PFSH <MONICA Gee - Last Filed: 08/31/23 18:40> PFSH Medical History Depression Eye abnormality Trauma Vaginal delivery Home Medications NK 01/02/23 [History Last Taken Unknown] Allergy/AdvReac Type Severity Reaction Status Date / Time amoxicillin Allergy Hives Verified 08/31/23 10:56 Penicillins [PCN] Allergy Hives Verified 08/31/23 10:56 Surgical History H/O eye surgery H/O neck surgery Social History Smoking Status: Heavy Smoker (>10/day) ROS <MONICA Gee - Last Filed: 08/31/23 18:40> ROS ED Constitutional Constitutional ED: Reports chills; Denies fever(s) Cardiovascular Cardiovascular: Denies chest pain Respiratory/Chest Respiratory/Chest: Denies cough or dyspnea Gastrointestinal Gastrointestinal: Denies abdominal pain, nausea or vomiting Musculoskeletal Musculoskeletal: Denies arthralgias or myalgias Integumentary Denies rash Neurologic Neurologic: Denies weakness EXAM <MONICA Gee - Last Filed: 08/31/23 18:40> Physical Exam Const Vital Signs: 08/31/23 10:49 08/31/23 16:18 Temperature 97.4 F L 97.8 F Temperature Source Temporal Pulse Rate 96 69 Respiratory Rate 18 17 Blood Pressure 143/95 H 131/89 H Blood Pressure Mean 111 103 Pulse Ox 97 98 Oxygen Delivery Method Room Air Positive well nourished, well developed and no apparent distress General Appearance ED: well developed HEENT Reports normocephalic and head/scalp atraumatic Mouth ED: Yes moist mucous membranes normal Eyes PERRL and EOMs intact bilaterally Neck full ROM and supple Chest Wall inspection of chest normal Chest Narrative: Bilateral breasts engorged, mildly erythematous, tender, and firm. No significant warmth. Resp normal respiratory effort and clear to auscultation bilaterally Cardio regular rate and regular rhythm GI soft to palpation, non-tender, non-distended and no masses Back/Spine normal ROM and normal to inspection Extremity normal to inspection and full ROM Neuro oriented x3, CN's II-XII intact bilaterally, moves all extremities, no focal motor deficits and no sensory deficits noted Sensorium / Orientation: awake and alert Psych mental status grossly normal and thought process normal Skin no rashes or lesions noted and no wounds <Dr. Naeem Rivera DO - Last Filed: 08/31/23 17:22> Physical Exam Const Vital Signs: 08/31/23 10:49 08/31/23 16:18 Temperature 97.4 F L 97.8 F Temperature Source Temporal Pulse Rate 96 69 Respiratory Rate 18 17 Blood Pressure 143/95 H 131/89 H Blood Pressure Mean 111 103 Pulse Ox 97 98 Oxygen Delivery Method Room Air MDM <MONICA Gee - Last Filed: 08/31/23 18:40> [facility] MDM Narrative Medical decision making narrative: Patient presenting today requesting to detox from heroin. She had a baby 3 days ago who is currently at [facility]. Last used yesterday evening. She does not feel she is going through withdrawal yet. She does have bilateral breast pain with significant engorgement and tenderness, I do have so me concerns for mastitis. did come to help patient pump, we will see if this improves her symptoms. Labs will be obtained and I will speak with the hospitalist regarding admission. She will be admitted in stable condition and is comfortable with plan. Lab Data Attestation: I reviewed the patient's lab results. Labs: Laboratory Results - last 24 hr 08/31/23 08/31/23 12:15 12:25 WBC 7.1 RBC 4.71 Hgb 12.6 Hct 40.6 MCV 86.2 MCH 26.8 L MCHC 31.0 L RDW Std Deviation 44.4 H RDW Coeff of Ron 14.5 Plt Count MPV 10.8 Immature Gran % (Auto) 0.600 Neut % (Auto) 50.4 Lymph % (Auto) 39.8 [place] % (Auto) 6.6 Eos % (Auto) 2.0 Baso % (Auto) 0.6 Absolute Neuts (auto) 3.6 Absolute Lymphs (auto) 2.82 Nucleated RBC % 0 Platelet Estimate ADEQUATE Sodium 140 Potassium 3.6 Chloride 107 Carbon Dioxide 27.0 Anion Gap 6 BUN 9 Creatinine 0.70 Estim Creat Clear Calc 129.51 Est GFR (MDRD) Af Amer 133 Est GFR (MDRD) Non-Af 110 BUN/Creatinine Ratio 12.9 Glucose 91 Calcium 9.4 Serum , Qual POSITIVE H Urine Opiates Screen NEGATIVE Urine Methadone Screen NEGATIVE Ur Barbiturates Screen NEGATIVE Ur Phencyclidine Scrn NEGATIVE Ur Amphetamines Screen NEGATIVE MDMA (Ecstasy) Screen NEGATIVE U Benzodiazepines Scrn NEGATIVE Urine Cocaine Screen NEGATIVE U Cannabinoids Screen NEGATIVE Ur Drug Screen Comment Ethyl Alcohol < 3.0 <Dr. Naeem Rivera, DO - Last Filed: 08/31/23 17:22> [facility] Lab Data Labs: Laboratory Results - last 24 hr 08/31/23 08/31/23 12:15 12:25 WBC 7.1 RBC 4.71 Hgb 12.6 Hct 40.6 MCV 86.2 MCH 26.8 L MCHC 31.0 L RDW Std Deviation 44.4 H RDW Coeff of Ron 14.5 Plt Count MPV 10.8 Immature Gran % (Auto) 0.600 Neut % (Auto) 50.4 Lymph % (Auto) 39.8 [place] % (Auto) 6.6 Eos % (Auto) 2.0 Baso % (Auto) 0.6 Absolute Neuts (auto) 3.6 Absolute Lymphs (auto) 2.82 Nucleated RBC % 0 Platelet Estimate ADEQUATE Sodium 140 Potassium 3.6 Chloride 107 Carbon Dioxide 27.0 Anion Gap 6 BUN 9 Creatinine 0.70 Estim Creat Clear Calc 129.51 Est GFR (MDRD) Af Amer 133 Est GFR (MDRD) Non-Af 110 BUN/Creatinine Ratio 12.9 Glucose 91 Calcium 9.4 Serum , Qual POSITIVE H Urine Opiates Screen NEGATIVE Urine Methadone Screen NEGATIVE Ur Barbiturates Screen NEGATIVE Ur Phencyclidine Scrn NEGATIVE Ur Amphetamines Screen NEGATIVE MDMA (Ecstasy) Screen NEGATIVE U Benzodiazepines Scrn NEGATIVE Urine Cocaine Screen NEGATIVE U Cannabinoids Screen NEGATIVE Ur Drug Screen Comment Ethyl Alcohol < 3.0 Treatment and Re-Evaluation Narrative: I have personally performed a face to face assessment of the patient and have reviewed the SCOTT Note. I performed a substantive portion of the visit including all aspects of the following. My delong findings include: History: Patient presents requesting detox from heroin. Patient states she uses 1/4 to 1/2 g/day. Patient injects normally. Patient states her last use was yesterday. Patient admits to some tremors and palpitations. Patient denies any nausea, vomiting, or diarrhea. Patient denies any fevers or chills. Patient denies any suicidal homicidal ideations. Exam: Vital signs are stable. Patient is afebrile. Patient is in no acute distress. Oral mucosa is pink and moist. Neck is supple. Trachea is midline. There is no JVD. Heart was regular rate and rhythm. Lungs are clear and equal bilateral. Abdomen is soft. Bowel sounds are normal. There is no tenderness. Cranial nerves II through XII are intact. There are no focal motor or sensory deficits. Medical Decision Making: Medical screening labs will be obtained. CBC will be obtained to assess for leukocytosis and anemia. Basic metabolic profile will be obtained to assess for electrolyte abnormality and renal function. Serum hCG will be obtained to assess for . Urine tox screen will be obtained to assess for substance abuse. Serum alcohol level will be obtained to assess for alcohol intoxication. CBC was reviewed and was within normal limits. Basic metabolic profile was reviewed and was within normal limits. Serum hCG was reviewed and was positive. (Patient had recent delivery 3 days ago.) Urine tox screen was reviewed and was negative. Serum alcohol level was reviewed and was less than 3.0. Case was discussed with the hospitalist. She will admit the patient to her service. Patient understood and was agreeable with the plan. All questions were answered. Discharge Plan Dx/Rx/DC Orders Clinical Impression: Desire for detoxification, of , Opioid use disorder Disposition Disposition: Acute Care Hospital [facility] Discharge Date/Time: 08/31/23 16:57
--- NOTE | 2023-08-31 15:14 | NURSING ---
IBCLC at bedside to assist with pumping. Breast pump set up and explained on use. Patient wants to dry up her milk, but is very engorged and uncomfortable. Explained to only pump to comfort and only as needed. Encouraged to wear a bra and use ice packs. Explained to patient that she will have to pump and dump her milk due to heroin use, states understanding.
[2023-08-31 16:18] VITALS: BP 131/89; PULSE 69; RESP 17; TEMP 36.6; O2SAT 98
--- NOTE | 2023-08-31 16:34 | HP.PCM.HOS_ITS ---
HPI - General General Date of Admission: 08/31/23 Date of Service: 08/31/23 Chief Complaint: heroin detox HPI Narrative IRAM MEDINA, is a 23 F with history of opioid use disorder who presented to [facility] ED 08/31/2023 for opioid detox. She had a daughter 3 days ago at [facility] and presented today with her significant other so they can both go through detox. They have notified children services may be her e to speak with them during the duration of their treatment. She reports when she was in the hospital after her vaginal delivery in [place] she was on a tramadol taper, last used heroin last night and primarily injects, uses a fourth to half a gram 1-2 times a day and has not yet experiencing withdrawal symptoms, only complaint at this time is some redness and pain on her bilateral breasts concerning for mastitis, slight improvement since she pumped in the ED but still painful. [facility] Medical History Depression Eye abnormality Trauma Vaginal delivery Home Medications NK 01/02/23 [History Last Taken Unknown] Allergy/AdvReac Type Severity Reaction Status Date / Time amoxicillin Allergy Hives Verified 08/31/23 10:56 Penicillins [PCN] Allergy Hives Verified 08/31/23 10:56 Surgical History H/O eye surgery H/O neck surgery Social History Smoking Status: Heavy Smoker (>10/day) ROS ROS Narrative General: Denies fever/chills HENT: Denies headache, denies stuffy nose, denies sore throat EYES: Denies changes in vision Resp: Denies cough, denies shortness of breath Cardiac: Denies chest pain GI: Denies abdominal pain, denies changes in bowel, denies nausea/vomiting : Denies changes in urination Extremity: Denies swelling MSK: Denies weakness Neuro: Denies any numbness/tingling Heme: Denies any bleeding or bruising Skin: Has some breast tenderness bilaterally Psychiatric: No complaints voiced Vital Signs Vital Signs Vital Signs: 08/31/23 10:49 08/31/23 16:18 Temperature 97.4 F L 97.8 F Temperature Source Temporal Pulse Rate 96 69 Respiratory Rate 18 17 Blood Pressure 143/95 H 131/89 H Blood Pressure Mean 111 103 Pulse Ox 97 98 Oxygen Delivery Method Room Air Weight Weight: 73.936 kg Body Mass Index (BMI) 24.0 Physical Exam Narrative General: Alert, oriented, no apparent distress HEENT: Atraumatic, normocephalic Eyes: Anicteric, normal conjunctiva, extraocular movements grossly intact Neck: Supple Respiratory: Clear to auscultation bilaterally, normal respiratory effort Cardiovascular: Regular rate and rhythm GI: Soft, nontender, nondistended Extremities: No edema Musculoskeletal: Moving all extremities Neuro: No overt focal neurological deficits Skin: Bilateral breasts slightly erythematous with no focal signs of infection or abscess or drainage Psych: Cooperative Results Lab / Micro Data 08/31/23 12:15 08/31/23 12:15 Labs: Laboratory Results - last 24 hr 08/31/23 12:15: WBC 7.1, RBC 4.71, Hgb 12.6, Hct 40.6, MCV 86.2, MCH 26.8 L, MCHC 31.0 L, RDW Std Deviation 44.4 H, RDW Coeff of Ron 14.5, Plt Count , MPV 10.8, Immature Gran % (Auto) 0.600, Neut % (Auto) 50.4, Lymph % (Auto) 39.8, [place] % (Auto) 6.6, Eos % (Auto) 2.0, Baso % (Auto) 0.6, Absolute Neuts (auto) 3.6, Absolute Lymphs (auto) 2.82, Nucleated RBC % 0, Platelet Estimate ADEQUATE, Sodium 140, Potassium 3.6, Chloride 107, Carbon Dioxide 27.0, Anion Gap 6, BUN 9, Creatinine 0.70, Estim Creat Clear Calc 129.51, Est GFR (MDRD) Af Amer 133, Est GFR (MDRD) Non-Af 110, BUN/Creatinine Ratio 12.9, Glucose 91, Calcium 9.4, Serum , Qual POSITIVE H, Ethyl Alcohol < 3.0 08/31/23 12:25: Urine Opiates Screen NEGATIVE, Urine Methadone Screen NEGATIVE, Ur Barbiturates Screen NEGATIVE, Ur Phencyclidine Scrn NEGATIVE, Ur Amphetamines Screen NEGATIVE, MDMA (Ecstasy) Screen NEGATIVE, U Benzodiazepines Scrn NEGATIVE, Urine Cocaine Screen NEGATIVE, U Cannabinoids Screen NEGATIVE, Ur Drug Screen Comment Micro: Microbiology 08/31/23 12:05 Mucosa - Nose Coronavirus COVID-19 PCR - Final Assessment & Plan Assessment/Plan (1) Opioid use disorder: (2) of : PLAN: Plan #Acute opiate withdrawal - Subutex taper initiated - As needed Tylenol, ibuprofen, bowel regimen, gabapentin, Bentyl, Vistaril, methocarbamol, clonidine - As needed trazodone nightly - As needed antiemetics -Once patient begins to clinically improve will discuss further discharge planning #Recent delivery and bilateral breast pain -Pt may be developing mastitis, bilateral breasts engorged with pain bilaterally today, somewhat improved after pumping -No focal inflammation or s/s of abscess -Supportive care -If no improvement or worsening may need abx #Tobacco use -Advise cessation -Nicotine replacement available if desired #DVT ppx: Low risk, ambulatory Milena Jimneez MD Charges/Coding Visit Charges Inpatient E&M: 73051 Init Hosp L1
[2023-08-31 17:27] VITALS: BP 142/96; PULSE 61; RESP 18; TEMP 36.8; O2SAT 98
[2023-08-31 17:28] VITALS: BMI 24.2
[2023-08-31 19:56] VITALS: BP 128/86; PULSE 66; RESP 16; TEMP 36.6; O2SAT 100
[2023-08-31 22:35] VITALS: BP 139/90; PULSE 60; RESP 16; TEMP 36.6; O2SAT 100
[2023-08-31] MEDS: Gabapentin 300 MG Capsule PO (22:51)
[2023-08-31] MEDS: traZODone 100 MG Tablet PO (22:51)
[2023-09-01 05:17] VITALS: BP 125/71; PULSE 62; RESP 16; TEMP 36.7; O2SAT 96
[2023-09-01 09:07] VITALS: BP 136/95; PULSE 68; RESP 16; TEMP 36.6; O2SAT 98
[2023-09-01] MEDS: Methocarbamol 750 MG Tablet PO (09:12)
[2023-09-01] MEDS: cloNIDine HCl 0.1 MG Tablet 0.100000000000000006 MG PO (09:13)
[2023-09-01] MEDS: Acetaminophen 325 MG Tablet 650 MG PO (09:13)
[2023-09-01] MEDS: hydrOXYzine PAM 25 MG Capsule 50 MG PO ×2 (09:13→17:14)
--- NOTE | 2023-09-01 13:03 | PCM.PN.HOSP ---
Reason for Visit Reason for Visit: Diagnoses Opioid use, unspecified, uncomplicated (08/31/23) Subjective Subjective No acute events overnight. Patient sleeping when I saw her this morning, answer my questions with short appropriate responses. Denied any withdrawal symptoms or any other acute concerns this morning. Objective Data Objective Data Vital Signs: Vital Signs Temp Pulse Resp BP Pulse Ox O2 Del Method 97.8 F 68 16 136/95 H 98 Room Air 09/01/23 09:07 09/01/23 09:07 09/01/23 09:07 09/01/23 09:07 09/01/23 09:07 09/01/23 09:07 Oxygen Delivery Method Room Air Weight: 72.167 kg Body Mass Index (BMI) 24.2 Intake & Output: Intake and Output for Last 24 Hours 08/30/23 08/31/23 09/01/23 23:59 23:59 23:59 Intake Total 250 / 250 350 / 350 Balance 250 / 250 350 / 350 Lab / Micro Data 08/31/23 12:15 08/31/23 12:15 Labs: Laboratory Results - last 24 hr 08/31/23 12:15: Plt Count , Platelet Estimate ADEQUATE, Serum , Qual POSITIVE H, Ethyl Alcohol < 3.0 Micro: Microbiology 08/31/23 12:05 Mucosa - Nose Coronavirus COVID-19 PCR - Final Physical Exam Const alert, oriented x3, no apparent distress and average body habitus Constitutional Narrative: Fatigued. General Appearance: cooperative and comfortable HEENT normocephalic, head/scalp atraumatic, hearing grossly normal bilaterally and nasal mucous membranes and turbinates normal Eyes PERRL, EOMs intact bilaterally and conjunctivae normal Neck full ROM, no lymphadenopathy and supple Lymph Lymphatic: no lymphadenopathy noted Chest inspection of chest normal Resp normal respiratory effort, normal air movement, no use of accessory muscles and clear to auscultation bilaterally Cardio regular rate, regular rhythm, no murmurs and peripheral pulses 2+ throughout GI normal to inspection, nondistended, normoactive bowel sounds, soft to palpation, non-tender and non-distended Back/Spine normal ROM Extremity normal to inspection, full ROM and no pedal edema Skin no rashes or lesions noted Neuro no focal motor deficits and no sensory deficits noted Speech: speech normal Psych mental status grossly normal Assessment & Plan Assessment/Plan (1) Opioid use disorder: (2) Desire for detoxification: PLAN: Plan Patient is a 23-year-old female who presented to [facility] ED on 08/31/2023 for opiate detoxification. 1. Acute opiate withdrawal ? Continue Subutex taper with as needed medications per opiate withdrawal order set. Case management following. Will complete taper in next 1 to 2 days. Likely home with outpatient services on discharge. 2. Recent delivery of baby and bilateral breast pain ? Patient delivered baby 3 days prior to this admission. Case management following, patient also has correctional counselor/case manager who follows with her in outpatient setting. Baby is still at [facility], child protective services is involved. Presented with bilateral breast engorgement with pain, somewhat improved after pumping on admit, no focal inflammation or signs or symptoms of abscess noted. Patient improved on hospital day 2. Continue supportive care, no need for antibiotics at this time. 3. Tobacco use ? Advised cessation. Nicotine replacement available if desired. DVT prophylaxis: Low risk, ambulate CODE STATUS: Full code, unverified Expected disposition: Home, 1 to 2 days Total clinical time spent by myself addressing the patient's medical issues, reviewing all the data, and collaborating with patient's care team: 25 minutes. Charges/Coding Visit Charges Inpatient E&M: 42135 [facility] Hosp L1
--- NOTE | 2023-09-01 14:05 | CASEMGMT ---
Social Work Pt had a baby three days ago as per H&P. The baby is still at [facility], and it does appear from the chart that Children's services is involved. DEBO called the telecommunications line installerhome planning consultant salesperson for Children's services to confirm, spoke w/Hodan. She states that they do have a case open. As per her record, pt was to discharge from [facility] [place], and came here for detox. They are aware of pt's opioid abuse. The baby is still at [facility], and it is anticipated pt will be there 5-7 more days due to withdrawal symptoms. Pt's director of casework services is DEBO Sanford to call her when pt is getting discharged. MILDRED Montiel
[2023-09-01 14:15] VITALS: BP 161/98; PULSE 89; RESP 18; TEMP 36.9; O2SAT 97
[2023-09-01] MEDS: Ibuprofen 600 MG Tablet PO (14:19)
[2023-09-01] MEDS: Gabapentin 300 MG Capsule PO (14:19)
--- NOTE | 2023-09-01 15:47 | NURSING ---
spoke with DEBO Hoffman and also charge nurse regarding pt request to call up to [place] [facility] to check on status of her and all concur okay- phone taken into pt room. [facility] [phone] phoned and transferred into pt room.
--- NOTE | 2023-09-01 16:00 | NURSING ---
pt restless, offered prn meds, pt declined.
--- NOTE | 2023-09-01 22:32 | DCINST_ITS ---
Discharge Instructions Diet Discharge Diet: No restrictions Activity Discharge Activity: No Restrictions Weight Bearing Status: Full weight bearing Follow Up Care Test Results: Test results from this visit will be discussed in further detail at your follow- up appointment, if applicable. Discharge Plan Admission Admit Date/Time: 08/31/23 16:39 Primary Reason for Your Visit: opiate abuse Attending Provider: Leonid Reza Primary Care Provider: Care Physician,No Primary Consulting Providers: Milena Jimenez Discharge Orders/Prescriptions Prescriptions: No Action NK Referrals / Follow Up: Care Physician,No Primary [Primary Care Provider] - Disposition Disposition (needs filled in before D/C Order can be placed): Against Medical Advice
--- NOTE | 2023-09-01 22:32 | PCM.DC.SUM ---
Providers Date of Admission: 08/31/23 Date of Discharge: 09/01/23 Primary Care Physician: No Primary Care Phys Reason For Visit: DETOX OPIATES Diagnosis Discharge Diagnosis (1) Opioid use disorder: Status: Acute Code(s): F11.90 - Opioid use, unspecified, uncomplicated (2) Desire for detoxification: Status: Acute Medications at Discharge Home Medications NK 01/02/23 Hospital Course Operations None Procedures None Summary of Care Provided Minutes Spent on Discharge: 25 Hospital Course: Patient is a 23-year-old female who presented to [facility] ED on 08/31/2023 for opiate detoxification. Short hospital course as noted below. Patient left AGAINST MEDICAL ADVICE on 09/01. 1. Acute opiate withdrawal - Treated w/ Subutex taper with as needed medications per opiate withdrawal order set while inpatient. Case management followed. 2. Recent delivery of baby and bilateral breast pain - Patient delivered baby 3 days prior to this admission. Case management here followed, patient also has housing case manager who follows with her in outpatient setting. Was reported that baby was still at [facility], CPS was involved. Presented with bilateral breast engorgement with pain, somewhat improved after pumping on admit, no focal inflammation or signs or symptoms of abscess noted, low concern for mastitis. Improved on hospital day 2. No need for antibiotics. 3. Tobacco use ? Advised cessation. Nicotine replacement offered as needed. Total clinical time spent by myself addressing the patient's discharge needs: 25 minutes. Physical Exam Const alert, oriented x3, no apparent distress and average body habitus Constitutional Narrative: Fatigued. General Appearance: cooperative and comfortable HEENT normocephalic, head/scalp atraumatic, hearing grossly normal bilaterally and nasal mucous membranes and turbinates normal Eyes PERRL, EOMs intact bilaterally and conjunctivae normal Neck full ROM, no lymphadenopathy and supple Lymph Lymphatic: no lymphadenopathy noted Chest inspection of chest normal Resp normal respiratory effort, normal air movement, no use of accessory muscles and clear to auscultation bilaterally Cardio regular rate, regular rhythm, no murmurs and peripheral pulses 2+ throughout GI normal to inspection, nondistended, normoactive bowel sounds, soft to palpation, non-tender and non-distended Back/Spine normal ROM Extremity normal to inspection, full ROM and no pedal edema Skin no rashes or lesions noted Neuro no focal motor deficits and no sensory deficits noted Speech: speech normal Psych mental status grossly normal Weight / BMI Weight Weight: 72.167 kg Body Mass Index (BMI) 24.2 ABG / Lab / Microbiology Data 08/31/23 12:15 08/31/23 12:15 Microbiology: Microbiology 08/31/23 12:05 Mucosa - Nose Coronavirus COVID-19 PCR - Final D/C Instructions Discharge Diet: No restrictions Weight Bearing Status: Full weight bearing Meaningful Use Info Meaningful Use Diagnoses (Choose all that apply): None applicable Discharge Plan Admission Admit Date/Time: 08/31/23 16:39 Primary Reason for Your Visit: opiate abuse Attending Provider: Leonid Reza Primary Care Provider: Care Physician,No Primary Consulting Providers: Milena Jimenez Discharge Orders/Prescriptions Prescriptions: No Action NK Referrals / Follow Up: Care Physician,No Primary [Primary Care Provider] - Disposition Disposition (needs filled in before D/C Order can be placed): Against Medical Advice Charges/Coding Visit Charges Inpatient E&M: 80452 Disch Hosp
--- NOTE | 2023-09-03 08:45 | CASEMGMT ---
Social Work Pt left AMA on Sunday evening. [facility], message left for nurse case management Minerva Child. MILDRED Montiel
== END 2023-09-01 19:50 | disposition left against medical advice (07) | DRG 561 ==
LOC: ED 15:15 → MS3 09-01 06:52
PROVIDERS: Admitting Provider Internal Medicine; Emergency Provider Emergency Medicine; Visit Provider Hospitalist
DX: O99.325 Drug use complicating the puerperium (principal); F11.13 Opioid abuse with withdrawal; F17.200 Nicotine dependence, unspecified, uncomplicated; O99.335 Smoking (tobacco) complicating the puerperium; O92.29 Other disorders of breast associated with pregnancy and the puerperium
CPT/HCPCS: 80048; 80307; 80320; 84703; 85025; 87635; 99221; 99283; G0378; G0480

== ENCOUNTER 2023-09-19 17:53 | Emergency (ER) | payer MEDICAID, SELFPAY ==
[2023-09-19 17:53] VITALS: BP 121/82; PULSE 94; RESP 16; TEMP 36.3; O2SAT 95; BMI 22.4
[2023-09-19 18:20] LABS: Absolute Lymphocyte Count 3.06 X10^3/uL (0.83-4.51); Absolute Neutrophil Count 3.3 X10^3/uL (2.0-7.7); Basophil# 0.04 X10^3/uL; Basophil% 0.6 % (0-1); Eosinophil# 0.04 X10^3/uL; Eosinophils% 0.6 % (0-5); Hematocrit 45.4 % (37-47); Hemoglobin 13.8 g/dL (12.0-15.0); Lymphocyte # 3.06 X10^3/ul (0.83-4.51); Lymphocyte % 44.2 % (19-41); Mean Corp Hgb Conc 30.4 g/dL (32-36); Mean Corpuscular Hgb 26.3 pg (27.0-32.0); Mean Corpuscular Volume 86.6 fL (81-99); Mean Platelet Vol. 11.1 fl (6.2-12.0); Monocyte# 0.43 X10^3/uL; Monocyte% 6.2 % (0-10); NRBC Flagged by Analyzer 0 % (0-5); Neutrophil # 3.34 X10^3/uL (2.7-7.7); Neutrophil % 48.1 % (47-70); Platelet Count 155 K/mm3 (150-450); RBC Distribution Width CV 15.1 % (11.6-14.6); Red Blood Count 5.24 M/mm3 (4.2-5.4); White Blood Count 6.9 K/mm3 (4.4-11.0)
[2023-09-19 18:40] LABS: Amphetamine Urine VISTA NEGATIVE (<1000 ng/mL); Barbiturate Urine VISTA NEGATIVE (< 200 ng/mL); Benzodiazepine Urine VISTA NEGATIVE (< 200 ng/mL); Cocaine Urine VISTA NEGATIVE (< 300 ng/mL); Ecstacy Urine VISTA POSITIVE (< 500 ng/mL); Methadone Urine VISTA NEGATIVE (< 300 ng/mL); PCP Urine VISTA NEGATIVE (< 25 ng/mL); THC Urine VISTA POSITIVE (< 50 ng/mL); Vista UDS pH Range 7
[2023-09-19 18:43] LABS: Anion Gap 6 (5-15); BUN 12 mg/dL (7-18); BUN/Creat Ratio 13.1 RATIO (10-20); Calcium,Total 10.2 mg/dL (8.5-10.1); Chloride 108 mmol/L (98-107); Creatinine, Serum 0.92 mg/dL (0.55-1.02); EST Glomerular Filtration Rate 80 mL/min (>60); Est Glom Filt Rate - Afr Amer 96 mL/min (>60); Estimated Creatinine Clearance 95.12 ml/min; Glucose 116 mg/dL (74-106); Potassium 4.1 mmol/L (3.5-5.1); Sodium Level 140 mmol/L (136-145)
[2023-09-19 18:47] LABS: Internal QC Validated? YES +Cl - CLEAR BKGD
[2023-09-19 18:49] LABS: Pregnancy, Urine Positive Negative; Record Kit Lot#,Urine Preg 718086
[2023-09-19 18:57] LABS: Alcohol, Blood (Medical)-Serum < 3.0 mg/dL
--- NOTE | 2023-09-19 18:57 | ED.RN ---
THIS RN AT BEDSIDE TO SPEAK WITH PATIENT. PT REPORTS THAT SHE HAS HAD THOUGHTS OF SELF HARM OVER THE LAST COUPLE OF DAYS.PT REPORTS THAT SHE IS NOT ACTIVELY SUICIDAL, BUT STATES, LIFE HAS BEEN REALLY STRESSFUL LATELY. MY BABY WAS IN THE NICU, WHICH IS WHY I HAD TO LEAVE DETOX. PT REPORTS THAT SHE IS HOMELESS AND DOES NOT HVE A GOOD SUPPORT SYSTEM AT THIS TIME. DR. TIM INFORMED.
--- NOTE | 2023-09-19 19:14 | ED.RN ---
CHARGE NURSE INFORMED OF PT CONVERSATION WITH THIS RN.
--- NOTE | 2023-09-19 19:47 | PCM.HP.STD ---
HPI - General General Date of Admission: 09/19/23 HPI Narrative IRAM MEDINA, is a 23 F who presents to the hospital requesting detox from fentanyl and heroin. Her last use was this afternoon. She was recently admitted at the end of August but left AMA because her was in the NICU in [place]. Currently her child is in the custody of her boyfriend's cousin due to child protective services. She does seem interested in potentially pursuing inpatient rehab as a discharge plan. Currently no signs of active withdrawal. She does inject but states that she had recent HIV and hepatitis C test prior to delivery of her child. [facility] Medical History Depression Eye abnormality Trauma Vaginal delivery Home Medications NK 01/02/23 [History Last Taken Unknown] Allergy/AdvReac Type Severity Reaction Status Date / Time amoxicillin Allergy Hives Verified 09/19/23 17:54 Penicillins [PCN] Allergy Hives Verified 09/19/23 17:54 no significant family history Surgical History H/O eye surgery H/O neck surgery Social History Smoking Status: Heavy Smoker (>10/day) ROS Constitutional Constitutional: Denies chills, fatigue, fever(s) or malaise Eyes Eyes: Denies blurry vision ENT HEENT: Denies headache(s) or nasal discharge Cardiovascular Cardiovascular: Denies chest pain, dyspnea on exertion or syncope Respiratory/Chest Respiratory/Chest: Denies cough, shortness of breath at rest or shortness of breath with exertion Gastrointestinal Gastrointestinal: Denies constipation, diarrhea, nausea or vomiting Genitourinary Genitourinary: Denies dysuria Neurologic Neurologic: Denies focal weakness, numbness or tremor(s) Psychiatric Psychiatric: Denies anxiety or depression Vital Signs Vital Signs Vital Signs: 09/19/23 17:53 Temperature 97.4 F L Temperature Source Temporal Pulse Rate 94 Respiratory Rate 16 Blood Pressure 121/82 H Blood Pressure Mean 95 Pulse Ox 95 Oxygen Delivery Method Room Air Weight Weight: 147 lb 2 oz Body Mass Index (BMI) 22.4 Physical Exam Narrative General: Alert, Oriented x3, Cooperative, No apparent distress HEENT: Atraumatic, PERRLA, EOMI, Normocephalic, poor dentition Oral: Moist Mucosa Neck: Supple, No JVD Lungs: Clear to auscultation, Normal air movement, No rhonchi, No wheeze, No rales Cardiovascular: Regular rate, Regular Rhythm, Normal S1, Normal S2, No murmurs Abdomen: Soft, Non Tender, Non-Distended, No Hepato-splenomegaly Extremities: No edema, Capillary Refill Less than 3 Seconds Skin: No rashes, No breakdown, bilateral track hyatt in her upper extremities without signs of infection Musculoskeletal: No Tenderness to Palpation of Joints or Extremities Neurological: No focal neurological deficits, Motor Exam 5/5 strength throughout, Sensory exam intact to light touch and pain Psych/Mental Status: Flat Results Lab / Micro Data 09/19/23 18:15 09/19/23 18:15 Labs: Laboratory Results - last 24 hr 09/19/23 18:00: Urine Test Positive H, Urine Opiates Screen NEGATIVE, Urine Methadone Screen NEGATIVE, Ur Barbiturates Screen NEGATIVE, Ur Phencyclidine Scrn NEGATIVE, Ur Amphetamines Screen NEGATIVE, MDMA (Ecstasy) Screen POSITIVE H, U Benzodiazepines Scrn NEGATIVE, Urine Cocaine Screen NEGATIVE, U Cannabinoids Screen POSITIVE H, Ur Drug Screen Comment 09/19/23 18:15: WBC 6.9, RBC 5.24, Hgb 13.8, Hct 45.4, MCV 86.6, MCH 26.3 L, MCHC 30.4 L, RDW Std Deviation 48.0 H, RDW Coeff of Ron 15.1 H, Plt Count 155, MPV 11.1, Immature Gran % (Auto) 0.300, Neut % (Auto) 48.1, Lymph % (Auto) 44.2 H, [place] % (Auto) 6.2, Eos % (Auto) 0.6, Baso % (Auto) 0.6, Absolute Neuts (auto) 3.3, Absolute Lymphs (auto) 3.06, Nucleated RBC % 0, Sodium 140, Potassium 4.1, Chloride 108 H, Carbon Dioxide 26.0, Anion Gap 6, BUN 12, Creatinine 0.92, Estim Creat Clear Calc 95.12, Est GFR (MDRD) Af Amer 96, Est GFR (MDRD) Non-Af 80, BUN/Creatinine Ratio 13.1, Glucose 116 H, Calcium 10.2 H, Ethyl Alcohol < 3.0 Assessment & Plan Assessment/Plan (1) Desire for detoxification: (2) Opioid use disorder: PLAN: Plan 1. Desire detox for opiates/tobacco abuse ? Last use was afternoon, she does inject in her arms and in her ankle ? No signs of infection in her previous track hyatt ? Will have her follow-up with 180 to develop a discharge plan likely inpatient rehab ? Continue with the opiate withdrawal protocol ? Discussed tobacco cessation can provide nicotine patch if necessary DVT: Ambulation Charges/Coding Visit Charges Inpatient E&M: 89576 Init Hosp L2
--- NOTE | 2023-09-19 19:55 | ED.RN ---
Pt not in room, observed leaving department with boyfriend.
--- NOTE | 2023-09-19 20:42 | EX.ED.SAOD ---
HPI History of Present Illness Chief Complaint: Substance Abuse Informant: patient Narrative Narrative: Patient is presenting to the ER for request of detox from opioids. She states regularly uses fentanyl and heroin. She last used this morning. She states she uses daily. States she feels okay right now does not like she is withdrawing. She is and her daughters discharge in [facility] today to the custody of the father's cousin per the patient. Patient was admitted 08/31 to 09/01 for detox but left AMA from our facility. Patient has no other complaints at this time. States she does inject. Denies any other drug use. Denies alcohol use. Does admit to tobacco use. [facility] Medical History Depression Eye abnormality Trauma Vaginal delivery Home Medications NK 01/02/23 [History Last Taken Unknown] Allergy/AdvReac Type Severity Reaction Status Date / Time amoxicillin Allergy Hives Verified 09/19/23 17:54 Penicillins [PCN] Allergy Hives Verified 09/19/23 17:54 Family History no significant family his Surgical History H/O eye surgery H/O neck surgery Social History Smoking Status: Heavy Smoker (>10/day) ROS ROS ED Constitutional Constitutional ED: Denies chills or fever(s) Eyes Eyes: Denies change in vision Respiratory/Chest Respiratory/Chest: Denies cough Gastrointestinal Gastrointestinal: Denies nausea or vomiting Genitourinary Genitourinary ED: Reports other Details: Continue vaginal bleeding Musculoskeletal Musculoskeletal: Denies arthralgias or myalgias Integumentary Denies rash Neurologic Neurologic: Denies headache(s) Psychiatric Psychiatric: Denies suicidal ideation or suicidal thoughts EXAM Physical Exam Const Vital Signs: 09/19/23 17:53 Temperature 97.4 F L Temperature Source Temporal Pulse Rate 94 Respiratory Rate 16 Blood Pressure 121/82 H Blood Pressure Mean 95 Pulse Ox 95 Oxygen Delivery Method Room Air Positive well nourished and well developed General Appearance ED: well developed and NAD HEENT Reports moist mucous membranes Eyes PERRL General Eye ED: Negative for scleral icterus Neck supple Chest Wall inspection of chest normal Resp normal respiratory effort and clear to auscultation bilaterally Cardio regular rate and regular rhythm Neuro oriented x3 Motor Exam: Negative for general weakness Psych mental status grossly normal and thought process normal Mood & Affect: depressed; Negative for anxious Skin Lesions: no lesions Rashes: no rashes MDM MDM MDM Narrative Medical decision making narrative: Patient evaluated for inpatient detox from opioids. Pricey test is trace positive however I expect this given her her recent status. Otherwise tox screen is positive for cannabis and MDMA. Patient is excepted to medicine service for inpatient detox by Dr. Padilla However She Then Eloped from the Emergency Room. Lab Data Attestation: I reviewed the patient's lab results. Labs: Laboratory Results - last 24 hr 09/19/23 09/19/23 18:00 18:15 WBC 6.9 RBC 5.24 Hgb 13.8 Hct 45.4 MCV 86.6 MCH 26.3 L MCHC 30.4 L RDW Std Deviation 48.0 H RDW Coeff of Ron 15.1 H Plt Count 155 MPV 11.1 Immature Gran % (Auto) 0.300 Neut % (Auto) 48.1 Lymph % (Auto) 44.2 H [place] % (Auto) 6.2 Eos % (Auto) 0.6 Baso % (Auto) 0.6 Absolute Neuts (auto) 3.3 Absolute Lymphs (auto) 3.06 Nucleated RBC % 0 Sodium 140 Potassium 4.1 Chloride 108 H Carbon Dioxide 26.0 Anion Gap 6 BUN 12 Creatinine 0.92 Estim Creat Clear Calc 95.12 Est GFR (MDRD) Af Amer 96 Est GFR (MDRD) Non-Af 80 BUN/Creatinine Ratio 13.1 Glucose 116 H Calcium 10.2 H Urine Test Positive H Urine Opiates Screen NEGATIVE Urine Methadone Screen NEGATIVE Ur Barbiturates Screen NEGATIVE Ur Phencyclidine Scrn NEGATIVE Ur Amphetamines Screen NEGATIVE MDMA (Ecstasy) Screen POSITIVE H U Benzodiazepines Scrn NEGATIVE Urine Cocaine Screen NEGATIVE U Cannabinoids Screen POSITIVE H Ur Drug Screen Comment Ethyl Alcohol < 3.0 Management Discussion w/another healthcare provider: Hospitalist Discharge Plan Triage Chief Complaint: Substance Abuse ED Provider: Cha Sidhu Dx/Rx/DC Orders Clinical Impression: Eloped from emergency department, Opioid use disorder Prescriptions: No Action NK Primary Care Provider: Care Physician,No Primary Disposition Disposition: Elopement Discharge Date/Time: 09/19/23 19:59
== END 2023-09-19 19:59 | disposition left against medical advice (07) ==
LOC: ED 18:39 → PCU 19:58
PROVIDERS: Emergency Provider Emergency Medicine; Visit Provider Emergency Medicine
DX: F11.10 Opioid abuse, uncomplicated (principal); F17.200 Nicotine dependence, unspecified, uncomplicated
CPT/HCPCS: 80048; 80307; 80320; 81025; 85025; 99282; G0480